=== PATIENT | male | born 1950 | race Hispanic/Latino ===

== ENCOUNTER 2019-01-30 09:43 | Emergency (ER) | payer MEDICARE ==
[2019-01-30] MEDS ORDERED: NITROGLYCERIN 0.4 MG SL TAB SL ONE (10:12)
[2019-01-30 10:15] LABS: BASOPHILS % (AUTO) 0.9 % (0.0-5.0); EOSINOPHILS % (AUTO) 2.7 % (0.0-8.0); HEMATOCRIT 44.7 % (42-54); LYMPHOCYTES % (AUTO) 25.8 % (21.0-51.0); MEAN CORPUSCULAR HEMOGLOBIN 33.8 pg (27.0-33.0); MEAN CORPUSCULAR VOLUME 96.7 fL (79-99); MONOCYTES % (AUTO) 9.2 % (3.0-13.0); NEUTROPHILS % (AUTO) 61.4 % (40.0-77.0); PLATELET COUNT (AUTO) 151 K/uL (130-400); RED BLOOD CELL COUNT(AUTO) 4.63 MIL/uL (4.50-6.20); RED CELL DISTRIBUTION WIDTH 13.2 % (11.0-15.5); WHITE BLOOD COUNT (AUTO) 5.3 K/uL (4.8-10.8)
[2019-01-30 10:22] LABS: CREATININE 1.1 mg/dL (0.5-1.5); POTASSIUM 4.6 mmol/L (3.5-5.1)
[2019-01-30 10:36] LABS: ALBUMIN 4.3 g/dL (3.5-5.0); BILIRUBIN,TOTAL 0.6 mg/dL (0.2-1.0); TOTAL PROTEIN, SERUM 8.2 g/dL (6.0-8.3)
[2019-01-30] MEDS ORDERED: GLUCAGON 1MG KIT 1 MG ML ONE (11:04)
[2019-01-30] MEDS ORDERED: NIFEDIPINE 10 MG CAP ONE (11:04)
== END 2019-01-30 15:33 | disposition home or self-care (01) ==
LOC: EDH 09:43
DX: T18.128A Food in esophagus causing other injury, initial encounter (principal); E11.9 Type 2 diabetes mellitus without complications; Z72.0 Tobacco use; X58.XXXA Exposure to other specified factors, initial encounter; Y93.89 Activity, other specified; Y92.89 Other specified places as the place of occurrence of the external cause; Y99.8 Other external cause status
CPT/HCPCS: 36415; 71045; 80053; 85025; 96374; 99285; J1610

== ENCOUNTER 2021-12-08 09:46 | Emergency (ER) | payer MEDICARE, OTHER ==
[~2021-12-08] VITALS: Ht 167.6 cm; Wt 72.6 kg
[2021-12-08] MEDS: KETOROLAC 30MG VIAL (30MG/ML) IM STA (10:13)
[2021-12-08] MEDS: ORPHENADRINE CITRATE 30 MG/ML ML IM STA (10:13)
[2021-12-08] MEDS ORDERED: NAPR375T6 PO (11:55)
[2021-12-08] MEDS ORDERED: METH-662 PO (11:55)
[2021-12-08 12:13] VITALS: BP 165/70
== END 2021-12-08 12:14 | disposition home or self-care (01) ==
LOC: EDH 09:46
DX: M54.31 Sciatica, right side (principal); M62.838 Other muscle spasm; E11.9 Type 2 diabetes mellitus without complications; E78.00 Pure hypercholesterolemia, unspecified; I10 Essential (primary) hypertension; Z79.1 Long term (current) use of non-steroidal anti-inflammatories (NSAID); Z95.5 Presence of coronary angioplasty implant and graft
CPT/HCPCS: 99284; 96372 ×2; J2360; J1885